=== PATIENT | female | born 1980 | race Caucasian/White ===

== ENCOUNTER 2018-08-28 10:41 | Inpatient (IN) | payer OTHER ==
[~2018-08-28] VITALS: Ht 157.5 cm; Wt 93.0 kg
--- NOTE | ~2018-08-28 | OR ---
[facility] [address] [place], [place] [address] Draft DATE OF OPERATION: 09/09/2018 SURGEON: Bob Phan DO PREOPERATIVE DIAGNOSES: 1. Intrauterine in the 39th week. 2. History of prior deliveries. 3. Desires tubal ligation with evidence of lower uterine thinning on prior operative note approved by ethics committee. 4. Macrosomia. POSTOPERATIVE DIAGNOSES: 1. Intrauterine in the 39th week. 2. History of prior deliveries. 3. Desires tubal ligation with evidence of lower uterine thinning on prior operative note approved by ethics committee. 4. Macrosomia. PROCEDURES PERFORMED: 1. Repeat low transverse delivery. 2. Bilateral complete salpingectomy. ANESTHESIA: Spinal. BUSINESS AGENT: Alex Aden MD ESTIMATED BLOOD LOSS: 800 mL. COMPLICATIONS: None. FINDINGS: Delivery of a viable female weighing 7 pounds 15 ounces with Apgars of 8 and 9 in the ARSENIO position. Nuchal cord x2. Normal tubes and ovaries. The lower uterine segment is again noted to be very thin with the bladder scarred up onto the lower uterine segment. Minimal pelvic or abdominal adhesions otherwise. PATIENT NAME: ROYCE ALEJANDRA OPERATIVE REPORT DATE OF : 84 REPORT #: [id number] PHYSICIAN: BOB PHAN DO PCP: NO PRIMARY CARE PHYSICIAN REPORT IS CONFIDENTIAL AND NOT TO BE RELEASED WITHOUT AUTHORIZATION [facility] [address] [place], [place] [address] Draft INDICATIONS: Ms. Alejandra is a pleasant 38-year-old G3, P2-0-0-2 white female who presents at 39 weeks for repeat low transverse delivery. is complicated by prior x2, history of a very thin lower uterine segment noted under prior and request for bilateral tubal ligation that was approved by the hospital ethics committee. Risks, benefits, and alternatives were discussed in detail with the patient. The patient understands and wishes to proceed with the procedure. TECHNIQUE: The patient was taken to the operating room where a time-out was performed to confirm correct patient and correct procedure. The patient was then prepped and draped in the supine position with a bump under the right hip. A Garrett catheter was inserted and Ancef 2 g were given preoperatively. No heparin was indicated. After testing to ensure that the spinal was adequate, a Pfannenstiel skin incision was made through the old incision and carried down to the fascia just medial of the midline. The fascial incision was then extended bilaterally using Glasgow scissors. The fascia was grasped with Marnie's, elevated, and the underlying rectus muscles dissected bluntly and sharply. There was some slight scarring in this layer as expected, but no difficulty in dissection. The rectus muscles were then divided in the midline and the peritoneum grasped with hemostats, elevated, and sharply incised. Peritoneal incision was extended cephalad caudad using blunt and sharp dissection. An César self-retractor was inserted after ensuring no significant abdominal or pelvic adhesions. The lower uterine segment was identified and noted to be quite thin as previously noted in her last note. The bladder was somewhat high-riding from scarring from prior . Hysterotomy was then performed using a surgical scalpel and the amnion was ruptured for clear fluid. Hysterotomy was then extended bilaterally using blunt dissection. The surgeon's hand was placed in the uterine cavity. The head elevated in the abdomen and delivered with the assistance of fundal pressure. Nuchal cord x2 blues was noted and this was reduced without difficulty. The remainder of the delivered with the assistance of fundal pressure easily. Upon delivery, the was vigorous and cried and delayed cord clamping times approximately 2 minutes was observed. The cord was then doubly clamped and cut. The handed to the waiting pediatric team for further care. Cord blood was obtained for routine analysis. The placenta was expressed intact with a centrally inserted three-vessel cord. Hysterotomy was repaired using #0 Vicryl in a running locked manner after ensuring that the uterine cavity was cleared of clot or any remaining products of conception. Some brisk bleeding from the left uterine artery was noted and this was made hemostatic with a [id number] stitch with careful attention to remain on the uterine corpus. A 2nd imbricating stitch was applied in a horizontal manner using #0 Vicryl with good hemostasis appreciated. The pelvis was irrigated and no additional bleeding was noted. Attention was turned to the tubal ligation. The adnexa were normal bilaterally. The right fallopian tube was grasped in the mid course with [place], elevated, and a window made in the mesosalpinx in an PATIENT NAME: ROYCE ALEJANDRA OPERATIVE REPORT DATE OF : 84 REPORT #: [id number] PHYSICIAN: BOB PHAN DO PCP: NO PRIMARY CARE PHYSICIAN REPORT IS CONFIDENTIAL AND NOT TO BE RELEASED WITHOUT AUTHORIZATION [facility] [address] [place], [place] [address] Draft avascular space using Bovie electrocautery. A #0 chromic was then used to ligate the fallopian tube proximal and distal. A small amount of oozing was noted at the distal end and decision was made to complete salpingectomies. A Jessica clamp was placed along the mesosalpinx distally, incorporating all of the fimbriated end. This was excised using Metzenbaum scissors and the mesosalpinx was made hemostatic with a single tie of #0 chromic. This process was repeated on the left side again with a [place] method that was converted to a complete salpingectomy due to some oozing along the mesosalpinx. Good hemostasis was appreciated bilaterally. Evicel was applied to the lower uterine segment and to the mesosalpinx bilaterally. The César retractor was removed and the pelvis was irrigated once again and found to be hemostatic. ACell sheet was applied to the lower uterine segment and then the peritoneum was reapproximated using 2-0 Vicryl in a running nonlocked manner. The rectus was examined and a small amount of oozing was noted along the border between the peritoneum and the rectus on the right. This was made hemostatic with a combination of #0 chromic and Bovie electrocautery. Remaining Evicel was placed in this area after excellent hemostasis was appreciated. The rectus was then reapproximated using #0 Vicryl in two loose interrupted sutures. ACell powder was applied to the rectus sheath and the fascia was then reapproximated using #0 Vicryl in a running nonlocked manner. The subcu was examined, irrigated and found to be hemostatic after use of Bovie electrocautery. ACell powder was applied to this and a 2-0 Vicryl suture was applied to this layer to approximate the subcu. Skin was then reapproximated using surgical akosua with excellent cosmesis and hemostasis appreciated. The uterus was Crede'd for small amount of blood and the patient was taken to PACU in good and stable condition. Sponge, needle, instrument count were correct x2 at the end of the procedure. Dr. Aden was present and participated in all portions of the procedure. Bob Phan DO JDW/MODL /[id number] Copies: PATIENT NAME: ROYCE ALEJANDRA OPERATIVE REPORT DATE OF : 84 REPORT #: [id number] PHYSICIAN: BOB PHAN DO PCP: NO PRIMARY CARE PHYSICIAN REPORT IS CONFIDENTIAL AND NOT TO BE RELEASED WITHOUT AUTHORIZATION [address] [address] Draft ~ PATIENT NAME: ROYCE ALEJANDRA OPERATIVE REPORT DATE OF : 84 REPORT #: [id number] PHYSICIAN: BOB PHAN DO PCP: NO PRIMARY CARE PHYSICIAN REPORT IS CONFIDENTIAL AND NOT TO BE RELEASED WITHOUT AUTHORIZATION
--- NOTE | 2018-09-09 09:23 | NUR ---
09/09/18 0923 Sheets,Meme 0905 PT ARRIVED TO PACU ON RA AND RESP EVEN AND UNLABORED. PT REPORTS NAUSEA AND RIB SAWYER REPORTS PT HAS BEEN HAVING NAUSEA THROUGHOUT CASE. LR RUNNING WITH 20 OF PIT. IV SITE WNL. PT DEEP BREATHING AND REPORTS PAIN /. PT UNABLE TO MOVE FEET.
--- NOTE | 2018-09-10 08:04 | PR ---
[facility] [address] [facility] [place], [place] [address] Signed PP Progress Notes Datetime Report Generated by CPN: 09/10/2018 08:04 SUBJECTIVE: [id number] Pain: Within normal limits Nausea/Vomiting: Denies Flatus: No Bowel Movement: No Vital Signs: [id number] Vital Signs: Reviewed; Within Normal Limits EXAM: [id number] Cardiovascular: Normal Respiratory: Normal Abdomen/Uterus: Normal Lochia: Normal Vulva/Perineum: Not Done Breasts: Not Done CVA Tenderness: Normal Extremities: Normal Incision: Normal Progress: Normal Exam Comments: Fundus firm U-2 nontender. Incision well healing SCDs in place IMPRESSION/PLAN/PROCEDURES: [id number] Impression: Normal progression Plan: Continue present management Progress Notes: Pt seen and examined. Doing well. Ambulating and tolerating full diet. Reveles cath in place. Pain and lochia minimal. well. No fevers/nausea/concerns. Anticipate d/c home POD #2 or 3. D/C reveles cath and continue routine postop care. Hgb 10.9 Signing Physician: Bob Phan DO Copies: ~ *Electronically Signed* 09/10/18 08 BOB PHAN DO PATIENT NAME: ROYCE ALEJANDRA PROGRESS NOTE DATE OF : 84 PHYSICIAN: BOB PHAN DO RPT #: [id number] REPORT IS CONFIDENTIAL AND NOT TO BE RELEASED WITHOUT AUTHORIZATION
--- NOTE | 2018-09-11 09:08 | PR ---
[facility] [address] [place], [place] [address] Signed PP Progress Notes Datetime Report Generated by CPN: 09/11/2018 09:08 SUBJECTIVE: [id number] Pain: Within normal limits Nausea/Vomiting: Denies Flatus: Yes Bowel Movement: No Vital Signs: [id number] Vital Signs: Reviewed; Within Normal Limits EXAM: [id number] Cardiovascular: Normal Respiratory: Normal Abdomen/Uterus: Normal Lochia: Normal Vulva/Perineum: Not Done Breasts: Not Done CVA Tenderness: Normal Extremities: Normal Incision: Normal Progress: Normal Exam Comments: fundus firm U-2 nontender. Incision well healing w/ akosua in place. SCDs in place. IMPRESSION/PLAN/PROCEDURES: [id number] Impression: Normal progression Plan: Discharge Progress Notes: Pt seen and examined. Doing well. Ambulating, voiding, and tolerating full diet. Pain and lochia minimal. well. No fevers/chills/other complaints. Tolerating oral dilaudid well w/ Reglan. Desires home. Completed d/c instructions in detail. Plan staple removal in office in 2 days. All questions answered. Signing Physician: Bob Phan DO Copies: ~ *Electronically Signed* 09/11/18 0908 BOB PHAN DO PATIENT NAME: ROYCE ALEJANDRA PROGRESS NOTE DATE OF : 84 PHYSICIAN: BOB PHAN DO RPT #: [id number] REPORT IS CONFIDENTIAL AND NOT TO BE RELEASED WITHOUT AUTHORIZATION
== END 2018-09-11 11:55 | disposition home or self-care (01) | DRG 785 ==
LOC: FBC 09-09 05:18
PROVIDERS: ADMIT Obstetrics & Gynecology
PROC: 10D00Z1 Extraction of Products of Conception, Low, Open Approach (ICD-10-PCS; principal; 2018-09-09 06:45)
PROC: 0UT70ZZ Resection of Bilateral Fallopian Tubes, Open Approach (ICD-10-PCS; 2018-09-09 06:45)
DX: O34.211 Maternal care for low transverse scar from previous cesarean delivery (principal); N85.8 Other specified noninflammatory disorders of uterus; Z3A.39 39 weeks gestation of pregnancy; Z37.0 Single live birth; O99.214 Obesity complicating childbirth; E66.9 Obesity, unspecified; O36.63X0 Maternal care for excessive fetal growth, third trimester, not applicable or unspecified; O69.81X0 Labor and delivery complicated by cord around neck, without compression, not applicable or unspecified; Z30.2 Encounter for sterilization; Z88.5 Allergy status to narcotic agent
CPT/HCPCS: 01961; 36415; 85027; C1763; J0690; J1885; J2274; J2370; J2405; J2550; J2590; J2765; J7120